=== PATIENT | male | born 1935 | race Caucasian/White ===

== ENCOUNTER 2024-10-02 20:05 | Emergency (ER) | payer OTHER ==
[~2024-10-02] VITALS: Ht 165.1 cm; Wt 54.5 kg
[~2024-10-02 20:05] MED LIST: AMLO1TAB22 PO; ASCO100076 PO; FENO160T PO; GLUC1CAP11 PO; HYDR25TA4 PO; OMEG-28 PO; OMEP20TA85 PO; SENN-84 PO
[2024-10-02 20:10] VITALS: BP 140/102; RESP 20; O2SAT 98
--- NOTE | 2024-10-02 20:27 | ED.PDOC ---
History of Present Illness HPI Comments 88-year-old male came to emergency room due to chest pains. Patient does have history of hypertension and Alzheimer's disease. Accompanied by , explains that patient since 3:00 p.m. has been complaining of left-sided chest pains, with generalized weakness. Denies any nausea or vomiting or shortness of breath. Chief Complaint: Chest pain Time Seen by MD: 20:26 Primary Care Provider: ANTHONY Reviewed Notes: Nurses Notes Allergies: Coded Allergies: NO KNOWN ALLERGIES (Unverified , 02/12/19) Home Meds Reported Medications Sennosides-Docusate Sodium (Senna-S) 1 Tab Tab, 1 TAB PO DAILY, TAB 02/12/19 Ascorbic Acid (Vitamin C) 1,000 Mg Tab, 1000 MG PO DAILY, TAB 02/12/19 [place]-3 Fatty Acids (Fish Oil 1200 mg) 1 Cap Cap, 1 CAP PO DAILY, CAP 02/12/19 Glucosamine-Chondroitin (Glucosamine & Chondroitin 500-400 mg) 1 Cap Cap, 4 CAP PO DAILY, CAP 02/12/19 Fenofibrate (Fenofibrate) 160 Mg Tab, 1 TAB PO DAILY, #30 TAB 5 Refills 02/12/19 Omeprazole (HM OMEPRAZOLE) 20 Mg Tab, 20 MG PO DAILY, TAB 02/12/19 Amlodipine Besylate (Amlodipine Besylate) 5 Mg Tab, 5 MG PO DAILY for 30 Days, MG 02/12/19 Hydrochlorothiazide (Hydrochlorothiazide) 25 Mg Tab, 25 MG PO DAILY for 30 Days, MG 02/12/19 Information Source: Patient Mode of Arrival: Ambulatory Severity: Moderate Timing: Hours Duration: Since onset Past Medical History PAST MEDICAL HISTORY: Alzheimer, High Lipids, HTN Surgical History: Tonsillectomy Surgical History (Other): Left hip surgery Family History Family History: Reviewed,noncontributory to illness Social History Smoker: Non-Smoker Alcohol: Occasionally Drugs: Denies Drug Use Lives In: Home Constitutional: reports: weakness; denies: chills, diaphoresis, fatigue, fever, malaise, sweats, others EENTM: denies: blurred vision, double vision, ear bleeding, ear discharge, ear drainage, ear pain, ear ringing, eye pain, eye redness, hearing loss, mouth pain, mouth swelling, nasal discharge, nose bleeding, nose congestion, nose pain, photophobia, tearing, throat pain, throat swelling, voice changes, others Respiratory: denies: cough, hemoptysis, orthopnea, SOB at rest, shortness of breath, SOB with excertion, stridor, wheezing, others Cardiovascular: reports: chest pain; denies: dizzy spells, diaphoresis, Dyspnea on exertion, edema, irregular heart beat, left arm pain, lightheadedness, palpitations, PND, syncope, others Gastrointestinal: denies: abdomen distended, abdominal pain, blood streaked bowels, constipated, diarrhea, dysphagia, difficulty swallowing, hematemesis, melena, nausea, poor appetite, poor fluid intake, rectal bleeding, rectal pain, vomiting, others Genitourinary: denies: burning, dysuria, flank pain, frequency, hematuria, incontinence, penile discharge, penile sore, pain, testicle pain, testicle swelling, urgency, others Neurological: denies: dizziness, fainting, headache, left sided numbness, left sided weakness, numbness, paresthesia, pre-existing deficit, right sided numbness, right sided weakness, seizure, speech problems, tingling, tremors, weakness, others Musculoskeletal: denies: back pain, gout, joint pain, joint swelling, muscle pain, muscle stiffness, neck pain, others Integumetry: denies: bruises, change in color, change in hair/nails, dryness, laceration, lesions, lumps, rash, wounds, others Allergic/Immunocompromised: denies: Difficulty Healing, Frequent Infections, Hives, Itching, others Hematologic/Lymphatic: denies: anemia, blood clots, easy bleeding, easy bruising, swollen glands, others Endocrine: denies: excessive hunger, excessive sweating, excessive thirst, excessive urination, flushing, intolerance to cold, intolerance to heat, unexplained weight gain, unexplained weight loss, others Psychiatric: denies: anxiety, bipolar disorder, depression, hopeless, panic disorder, schizophrenia, sleepless, suicidal, others Physical Exam General Appearance: No Apparent Distress, Normal HEENT: Normal ENT Inspection, Pharynx Normal, TMs Normal Neck: Full Range of Motion, Non-Tender, Normal, Normal Inspection Respiratory: Chest Non-Tender, Lungs Clear, No Accessory Muscle Use, No Respiratory Distress, Normal Breath Sounds Cardiovascular: No Edema, No JVD, No Murmur, No Gallop, Normal Peripheral Pulses, Regular Rate/Rhythm Breast Exam: Deferred Gastrointestinal: No Organomegaly, Non Tender, No Pulsatile Mass, Normal Bowel Sounds, Soft Genitalia: Deferred Pelvic: Deferred Rectal: Deferred Extremities: No calf tenderness, Normal capillary refill, Normal inspection, Normal range of motion, Non-tender, No pedal edema Musculoskeletal : Apperance: Normal Neurologic: Alert, surgical elastic knitter hand frame II-XII nml as Tested, No Motor Deficits, Normal Affect, Normal Mood, No Sensory Deficits Cerebellar Function: Normal Reflexes: Normal Skin: Dry, Normal Color, Warm Lymphatic: No Adenopathy Was a procedure done? Was a procedure done?: No EKG EKG : Pulse Rate (adult): 88 Cardiac Rhythm: NSR Comments PAC's Differential Dx Considerations may include: Anemia, electrolyte imbalance, urinary tract infection, coronary artery disease, musculoskeletal pain, dehydration, viral syndrome, weakness X-Ray, Labs, Meds, VS Vital Signs Date Time Temp Pulse Resp B/P (MAP) Pulse Ox O2 Delivery O2 Flow Rate FiO2 10/02/24 21:33 85 10/02/24 20:27 88 10/02/24 20:16 85 10/02/24 20:10 92 10/02/24 20:10 97.8 92 20 140/102 (115) 98 Lab Test 10/02/24 21:30 10/02/24 20:30 Range/Units Troponin I High Sensitivity 7 7 </=54 ng/L White Blood Count 13.7 H 4.4-10.8 10^3/uL Red Blood Count 4.43 L 4.5-5.90 10^6/uL Hemoglobin 13.8 13.5-17.5 g/dL Hematocrit 42.1 41.0-53.0 % Mean Corpuscular Volume 95.0 80.0-100.0 fL Mean Corpuscular Hemoglobin 31.2 28.0-32.0 pg Mean Corpuscular Hemoglobin Concent 32.8 32.0-36.0 g/dL Red Cell Distribution Width 13.5 11.8-14.3 % Platelet Count 334 140-450 10^3/uL Mean Platelet Volume 7.5 6.9-10.8 fL Neutrophils (%) (Auto) 80.0 37.0-80.0 % Lymphocytes (%) (Auto) 11.7 10.0-50.0 % Monocytes (%) (Auto) 7.0 0.0-12.0 % Eosinophils (%) (Auto) 0.7 0.0-7.0 % Basophils (%) (Auto) 0.6 0.0-2.0 % Neutrophils # (Auto) 10.9 H 1.6-8.6 10 ^3/uL Lymphocytes # (Auto) 1.6 0.4-5.4 10 ^3/uL Monocytes # (Auto) 1.0 0-1.3 10 ^3/uL Eosinophils # (Auto) 0.1 0-0.8 10 ^3/uL Basophils # (Auto) 0.1 0-0.2 10 ^3/uL Nucleated Red Blood Cells 0.0 % Prothrombin Time 10.4 9.3-11.8 sec Prothrombin Time INR 0.98 0.9-1.15 Activated Partial Thromboplast Time 31.7 24.5-34.5 SEC Sodium Level 137 136-145 mmol/L Potassium Level 3.5 3.5-5.1 mmol/L Chloride Level 101 98-107 mmol/L Carbon Dioxide Level 27 20-31 mmol/L Anion Gap 9 5-15 Blood Urea Nitrogen 16 9-23 mg/dL Creatinine 1.21 0.700-1.30 mg/dL Glomerular Filtration Rate Calc 58 >90 mL/min BUN/Creatinine Ratio 13.2 10.0-20.0 Serum Glucose 134 H 74-106 mg/dL Calcium Level 10.2 8.7-10.4 mg/dL Total Bilirubin 0.7 0.2-1.0 mg/dL Aspartate Amino Transferase (AST) 16 13-40 U/L Alanine Aminotransferase (ALT) 15 7-40 U/L Alkaline Phosphatase 60 46-116 U/L B-Type Natriuretic Peptide 70.56 0-100 pg/mL Total Protein 6.8 5.7-8.2 g/dL Albumin 4.5 3.2-4.8 g/dL CHEST RADIOGRAPH Indication: weakness Technique: Single frontal view of the chest was obtained Comparison: None FINDINGS: Lines and Tubes: None Lungs: Clear Pleura: No effusion. No pneumothorax. Cardiomediastinal contours: Unremarkable Bones: Unremarkable IMPRESSION: Clear lungs. Time of 1ST Reevaluation: 20:20 Reevaluation 1ST: Unchanged Patient Education/Counseling: Diagnosis, Treatment Family Education/Counseling: Diagnosis, Treatment Departure 1 Departure Time of Disposition: 04:00 Impression: Primary Impression: Weakness Additional Impression: Alzheimer dementia Qualified Codes: G30.9 - Alzheimer's disease, unspecified; F02.B0 - Dementia in other diseases classified elsewhere, moderate, without behavioral disturbance, psychotic disturbance, mood disturbance, and anxiety Disposition: 01 HOME / SELF CARE / HOMELESS Condition: Stable Additional Instructions: Reassessed patient, vital signs stable. Denies any new symptoms. Patient is able to tolerate PO and ambulate/be mobile at their baseline without concern. Risks and benefits of all medications given or prescribed, if any, discussed. All lab work, imaging and diagnostic studies were reviewed by me. The patient was counseled extensively on my clinical impression, diagnosis, expected course of the disease, and plan, including their follow-up care. Will discharge patient. Patient instructed to follow up with Primary Care Physician within 24-48 hours. Strict return precautions given for further exacerbation of symptoms or for new symptoms. The patient was given the opportunity to ask questions and all questions were answered by myself and the nursing/tech staff. Patient is in agreement with the care plan. The patient verbally expressed understanding of the discharge instructions, including the reasons to return to the Emergency Department. Discharged With: Self Critical Care Note Critical Care Time?: Yes (35 min-critical care time only) Critical care comment: Chest pain Stability Stability form required: No Heart Score Heart Score: Heart Score Response (Comments) Value History N/A 0 EKG N/A 0 Age N/A 0 Risk Factors N/A 0 Troponin N/A 0 Total 0 I personally scribed for MARII DAVIS MD ([email or web address]) on 10/02/24 at 20:27. Electronically submitted by Raoul Rushing ([email or web address]). I personally scribed for MARII DAVIS MD ([email or web address]) on 10/02/24 at 21:27. Electronically submitted by Raoul Rushing ([email or web address]). MARII DAVIS MD Oct 02, 2024 20:27
[2024-10-02 21:11] LABS: Basophils # (auto) 0.1 10 ^3/uL (0-0.2); Basophils % (auto) 0.6 % (0.0-2.0); Eosinophils # (auto) 0.1 10 ^3/uL (0-0.8); Eosinophils % (auto) 0.7 % (0.0-7.0); Hematocrit 42.1 % (41.0-53.0); Hemoglobin 13.8 g/dL (13.5-17.5); Lymphocytes # (auto) 1.6 10 ^3/uL (0.4-5.4); Lymphocytes % (auto) 11.7 % (10.0-50.0); Mean Corpuscular Hemoglobin 31.2 pg (28.0-32.0); Mean Corpuscular Hgb Conc. 32.8 g/dL (32.0-36.0); Neutrophils # (auto) 10.9 10 ^3/uL (1.6-8.6); Platelet Count (auto) 334 10^3/uL (140-450); Red Blood Cells 4.43 10^6/uL (4.5-5.90); Red Cell Distribution Width 13.5 % (11.8-14.3); White Blood Cell 13.7 10^3/uL (4.4-10.8)
--- NOTE | 2024-10-02 21:17 | DVH ---
CHEST RADIOGRAPH Indication: weakness Technique: Single frontal view of the chest was obtained Comparison: None FINDINGS: Lines and Tubes: None Lungs: Clear Pleura: No effusion. No pneumothorax. Cardiomediastinal contours: Unremarkable Bones: Unremarkable IMPRESSION: Clear lungs.
[2024-10-02 21:33] VITALS: PULSE 85
[2024-10-02 21:49] LABS: INR 0.98 (0.9-1.15); Partial Thromboplastin Time 31.7 SEC (24.5-34.5); Prothrombin Time 10.4 sec (9.3-11.8)
[2024-10-02 22:15] LABS: Alanine Aminotransferase 15 U/L (7-40); Albumin 4.5 g/dL (3.2-4.8); Alkaline Phosphatase 60 U/L (46-116); Anion Gap 9 (5-15); Aspartate Aminotransferase 16 U/L (13-40); BUN/Creatinine Ratio 13.2 (10.0-20.0); Bilirubin, Total 0.7 mg/dL (0.2-1.0); Blood Urea Nitrogen 16 mg/dL (9-23); Calcium 10.2 mg/dL (8.7-10.4); Carbon Dioxide 27 mmol/L (20-31); Chloride 101 mmol/L (98-107); Sodium 137 mmol/L (136-145); Total Protein 6.8 g/dL (5.7-8.2)
[2024-10-02 22:19] LABS: Glucose 134 mg/dL (74-106); Potassium 3.5 mmol/L (3.5-5.1)
--- NOTE | 2024-10-04 08:15 | ECG ---
[facility] Test Date: 2024-10-02 Test Time: 21:33:10 Pat Name: ARSENIO VALLADARES Department: ER Room: Gender: M Sign Language Teacher: : 1935 Requested By: MARII DAVIS Order Number: [id number] Reading MD: Grant Mariscal Measurements Intervals [place] Rate: 85 P: 80 MS: 117 QRS: 70 QRSD: 65 T: 89 QT: 371 QTc: 442 Interpretive Statements Sinus rhythm Borderline short MS interval Nonspecific repol abnormality, diffuse leads Electronically Signed On 10-04-2024 8:26:07 PST by Grant Mariscal Please click the below link to view image of tracing.
--- NOTE | 2024-10-05 14:23 | ECG ---
[facility] Test Date: 2024-10-02 Test Time: 20:16:56 Pat Name: ARSENIO VALLADARES Department: er Room: Gender: M Shot Fireman: mariah : 1935 Requested By: MARII DAVIS Order Number: [id number] Reading MD: Measurements Intervals [place] Rate: 85 P: 85 VA: 123 QRS: 72 QRSD: 62 T: 70 QT: 431 QTc: 513 Interpretive Statements Sinus rhythm Atrial premature complex Borderline repol abnormality, diffuse leads Prolonged QT interval Please click the below link to view image of tracing.
== END 2024-10-03 01:58 | disposition left against medical advice (07) ==
LOC: ER 20:05
DX: G30.9 Alzheimer's disease, unspecified (principal); F02.B0 Dementia in other diseases classified elsewhere, moderate, without behavioral disturbance, psychotic disturbance, mood disturbance, and anxiety; I10 Essential (primary) hypertension; R07.89 Other chest pain; R53.1 Weakness; Z79.899 Other long term (current) drug therapy; Z90.89 Acquired absence of other organs
CPT/HCPCS: 36415; 71045; 80053; 83880; 84484; 85025; 85610; 85730; 93005